=== PATIENT | female | born 1930 | race Caucasian/White ===

== ENCOUNTER 2016-12-14 13:29 | Emergency (ER) | payer BC ==
[2016-12-14 13:44] VITALS: BP 131/75; PULSE 83; BMI 23.7
--- NOTE | 2016-12-14 14:50 | PDOC ---
History of Present Illness - General Chief Complaint: Pain Stated Complaint: CONGESTED Time Seen by Provider: 12/14/16 13:47 Past History - Past Medical History Allergies/Adverse Reactions: Allergies Allergy/AdvReac Type Severity Reaction Status Date / Time clarithromycin [From Biaxin] Allergy Severe ABD. PAIN Verified 04/03/14 08:44 Sulfa (Sulfonamide Allergy Severe RASH,FEVER, Verified 04/03/14 08:44 Antibiotics) NAUSEA erythromycin base AdvReac Intermediate Nausea Verified 04/03/14 08:44 [Erythromycin Base] Home Medications: Ambulatory Orders Atorvastatin Ca [Lipitor] 20 mg PO DAILY 03/08/14 Folic Acid 1 mg PO DAILY 03/08/14 Levothyroxine [Synthroid -] 0.125 mcg PO DAILY 03/08/14 Losartan 50Mg/Hctz 12.5MG [Hyzaar -] 1 tab PO DAILY 03/08/14 Multivitamins [Multivit ([facility] Formulary)] 1 tab PO DAILY 03/08/14 Nebivolol HCl [Bystolic] 5 mg PO BID 03/08/14 Ranitidine [Zantac -] 150 mg PO BID 03/08/14 Verapamil HCl [Verapamil ER] 240 mg PO DAILY 03/08/14 Calcium Carb/Vitamin D3/Vit K1 [Calcium + D Soft Chewable Tab] 1 each PO DAILY 12/24/14 Furosemide [Lasix -] 10 mg PO DAILY 12/24/14 Aspirin [Aspirin EC] 81 mg PO DAILY #0 12/25/14 Anemia: No Asthma: No Cancer: Yes (breast ca with B masectomy) Cardiac Disorders: Yes (hospitalised may 2015 with a-fib, s/p pacemaker august 2015) CVA: No COPD: No CHF: No Dementia: No Diabetes: No GI Disorders: Yes (GERD) Disorders: No HTN: Yes Hypercholesterolemia: Yes Liver Disease: Yes (HEPATITIS 1963) Seizures: No Thyroid Disease: Yes (HYPOTHYROIDISM) - Surgical History Abdominal Surgery: Yes Appendectomy: Yes Cardiac Surgery: Yes (PPM) Cholecystectomy: Yes Lung Surgery: No Neurologic Surgery: (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) Orthopedic Surgery: No - Psycho/Social/Smoking Cessation Hx Anxiety: No Suicidal Ideation: No Smoking History: Former smoker Have you smoked in the past 12 months: No If you are a former smoker, when did you quit?: OVER 30 YRS AGO-ONLY SMOKED FEW PER DAY Information on smoking cessation initiated: No Hx Alcohol Use: No Drug/Substance Use Hx: No Substance Use Type: Alcohol Hx Substance Use Treatment: No *Physical Exam - Vital Signs Last Vital Signs Temp Pulse Resp BP Pulse Ox 83 18 131/75 100 12/14/16 13:37 12/14/16 13:37 12/14/16 13:37 12/14/16 13:37 *DC/Admit/Observation/Transfer Diagnosis at time of Disposition: Eloped - Discharge Dispostion Disposition: LEFT BEFORE MED EVALISAAC Condition at time of disposition: Unchanged/Unknown
== END 2016-12-14 14:00 | disposition left against medical advice (07) ==
LOC: JERFT 13:29
DX: Z53.21 Procedure and treatment not carried out due to patient leaving prior to being seen by health care provider (principal)
CPT/HCPCS: 99281-25

== ENCOUNTER 2017-08-22 12:30 | Emergency (ER) | payer BC, OTHER ==
[2017-08-22 12:39] VITALS: TEMP 97.9; BMI 23.9
--- NOTE | 2017-08-22 13:55 | PDOC ---
History of Present Illness - General History Source: Patient Exam Limitations: No Limitations - History of Present Illness Initial Comments: 08/22/17 15:07 The patient is a 87 year old female with a significant PMH of breast cancer s/p bilateral masectomy, a-fib s/p pacemeaker in august 2015 (on eliquis), GERD, diverticulitis, HTN, HLD, hepatitis B, and hypothyroidism who presents to the emergency department complaining of diarrhea for the past week and generalized weakness this morning. The patient noticed she started having 4-5 episodes of watery stool a day for the past week. The patient notes the stool was black, tarry, non-bloody this morning prompting her to come to the ER. The patient endorses she takes feosol daily and her stool is normally dark, but states her stool was darker than usual this morning. The patient states she is not eating and drinking as much as she usually does. The patient is complaining of generalized weakness since this morning. Of note, the patient had an upper endoscopy in April that was normal. The patient is currently following up with GI, Dr. Turner. The patient denies any recent travel or sick contacts. The patient denies abdominal pain, chest pain, pain with defection, shortness of breath, headache and dizziness. Denies fever, chills, nausea, vomit, diarrhea and constipation. Denies dysuria, frequency, urgency and hematuria. Allergies: Clarithromycin, sulfas, erythromycin Past surgical history: hysterectomy, cholecystectomy, bilateral mastectomy Social history: No reported alcohol, drug, or cigarette use. PCP: Dr. Starr <Lala Spangler - Last Filed: 08/22/17 15:07> <Antonette Thornton - Last Filed: 08/22/17 15:31> - General Chief Complaint: Diarrhea Stated Complaint: DIARRHEA, PCP SENT Time Seen by Provider: 08/22/17 13:37 Past History <Lala Spangler - Last Filed: 08/22/17 15:07> - Past Medical History Anemia: No Asthma: No Cancer: Yes (breast ca with B masectomy) Cardiac Disorders: Yes (hospitalised may 2015 with a-fib, s/p pacemaker august 2015, A.FIB) CVA: No COPD: No CHF: No DVT: No Dementia: No Diabetes: No GI Disorders: Yes (GERD,DIVERTICULITIS) Disorders: No HTN: Yes Hypercholesterolemia: Yes Liver Disease: Yes (HEPATITIS 1963) Seizures: No Thyroid Disease: Yes (HYPOTHYROIDISM) - Surgical History Abdominal Surgery: Yes Appendectomy: Yes Cardiac Surgery: Yes (PPM) Cholecystectomy: Yes Lung Surgery: No Neurologic Surgery: (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 PAIN Verified 08/22/17 12:39 Sulfa (Sulfonamide Allergy Severe RASH,FEVER, Verified 08/22/17 12:39 Antibiotics) NAUSEA erythromycin base AdvReac Intermediate Nausea Verified 08/22/17 12:39 [Erythromycin Base] Home Medications: Ambulatory Orders Atorvastatin Ca [Lipitor] 20 mg PO DAILY 03/08/14 Levothyroxine [Synthroid -] 25 mcg PO DAILY 03/08/14 Multivitamins [Multivit ([facility] Formulary)] 1 tab PO DAILY 03/08/14 Calcium Carb/Vitamin D3/Vit K1 [Calcium + D Soft Chewable Tab] 1 each PO DAILY 12/24/14 Furosemide [Lasix -] 20 mg PO DAILY 12/24/14 Carvedilol [Coreg] 25 mg PO BID 05/17/17 Potassium Chloride [K-Dur -] 10 meq PO DAILY #30 tablet.er 05/18/17 Ranitidine [Zantac -] 150 mg PO BID #60 tablet 05/18/17 Apixaban [Eliquis] 5 mg PO BID 08/22/17 Review of Systems - Review of Systems Able to Perform ROS?: Yes Comments:: 08/22/17 14:18 GENERAL/CONSTITUTIONAL: (+) Weakness. No fever or chills. HEAD, EYES, EARS, NOSE AND THROAT: No change in vision. No ear pain or discharge. No sore throat. CARDIOVASCULAR: No chest pain or shortness of breath. RESPIRATORY: No cough, wheezing, or hemoptysis. GASTROINTESTINAL: (+) Diarrhea and black, tarry stool. No nausea, vomiting, or constipation. GENITOURINARY: No dysuria, frequency, or change in urination. MUSCULOSKELETAL: No joint or muscle swelling or pain. No neck or back pain. SKIN: No rash NEUROLOGIC: No headache, vertigo, loss of consciousness, or change in strength/ sensation. ENDOCRINE: No increased thirst. No abnormal weight change. HEMATOLOGIC/LYMPHATIC: No anemia, easy bleeding, or history of blood clots. ALLERGIC/IMMUNOLOGIC: No hives or skin allergy. <Lala Spangler - Last Filed: 08/22/17 15:07> *Physical Exam - Vital Signs Last Vital Signs Temp Pulse Resp BP Pulse Ox 97.9 F 82 12 109/58 100 08/22/17 12:35 08/22/17 12:35 08/22/17 12:35 08/22/17 12:35 08/22/17 12:35 - Physical Exam Comments: 08/22/17 14:17 GENERAL: Awake, alert, and fully oriented, in no acute distress HEAD: No signs of trauma EYES: PERRLA, EOMI, sclera anicteric, conjunctiva clear ENT: Auricles normal inspection, hearing grossly normal, nares patent, oropharynx clear without exudates. Moist mucosa NECK: Normal ROM, supple, no lymphadenopathy, JVD, or masses LUNGS: Breath sounds equal, clear to auscultation bilaterally. No wheezes, and no crackles HEART: Regular rate and rhythm, normal S1 and S2, no murmurs, rubs or gallops ABDOMEN: Soft, nontender, normoactive bowel sounds. No guarding, no rebound. No masses : (+) Jet black stool. EXTREMITIES: Normal range of motion, no edema. No clubbing or cyanosis. No cords, erythema, or tenderness NEUROLOGICAL: Cranial nerves II through XII grossly intact. Normal speech, normal gait SKIN: Warm, Dry, normal turgor, no rashes or lesions noted. <Lala Spangler - Last Filed: 08/22/17 15:07> - Vital Signs Last Vital Signs Temp Pulse Resp BP Pulse Ox 97.9 F 82 12 109/58 100 08/22/17 12:35 08/22/17 12:35 08/22/17 12:35 08/22/17 12:35 08/22/17 12:35 <Antonette Thornton - Last Filed: 08/22/17 15:31> ED Treatment Course - LABORATORY CBC & Chemistry Diagram: 08/22/17 13:50 08/22/17 13:50 - ADDITIONAL ORDERS Additional order review: 08/22/17 13:50 RBC 4.16 MCV 89.6 MCHC 32.6 RDW 13.1 MPV 8.6 Neutrophils % 67.4 Lymphocytes % 20.5 D Monocytes % 10.8 H Eosinophils % 0.8 Basophils % 0.5 <Lala Spangler - Last Filed: 08/22/17 15:07> - LABORATORY CBC & Chemistry Diagram: 08/22/17 13:50 08/22/17 13:50 <Antonette Thornton - Last Filed: 08/22/17 15:31> Medical Decision Making - Medical Decision Making 08/22/17 15:16 Pt presents to the ED complaining of a week of loose stools, with 3-4 loose stools/ day. Patient also complaining of black stool. On rectal exam, stool is jet black--inconsistent with melena. Stool is guiac negative. PAtient denies other symptoms except for generalized weakness. Labs are within normal limits. Case discussed with Dr. Starr, who agrees with discharging the patient home and will see her on Tuesday. THe patient understands that while she does not appear to have rectal bleeding, I do not yet have a cause for her symptoms and she should return immediately to the ED for new or worsening symptoms. <Antonette Thornton - Last Filed: 08/22/17 15:31> *DC/Admit/Observation/Transfer - Attestations Scribe Attestion: 08/22/17 14:19 Documentation prepared by Lala Spangler, acting as medical secretary receptionist for Antonette Thornton MD. <Lala Spangler - Last Filed: 08/22/17 15:07> - Discharge Dispostion Admit: No <Antonette Thornton - Last Filed: 08/22/17 15:31> Diagnosis at time of Disposition: Diarrhea Qualifiers: Diarrhea type: unspecified type Qualified Code(s): R19.7 - Diarrhea, unspecified - Discharge Dispostion Disposition: HOME Condition at time of disposition: Good - Referrals Referrals: Christin Becker MD [Nurse Practitioner] - - Patient Instructions Printed Discharge Instructions: Diarrhea Additional Instructions: Please return to the ED for worsening diarrhea, abdominal pain, nausea and vomiting, bloody vomit or stool. Make sure that you see Dr. Starr on Tuesday. You should collect your stool in the cup provided and bring it into the lab. - Post Discharge Activity
[2017-08-22 13:59] LABS: BASO % 0.5 % (0-2.0); EOS % 0.8 % (0-4.5); HEMATOCRIT 37.3 % (32.4-45.2); HEMOGLOBIN 12.2 GM/dL (10.7-15.3); LYMPH % 20.5 % (8-40); MCH 29.2 pg (25.7-33.7); MCHC 32.6 g/dl (32.0-36.0); MEAN CELL VOLUME 89.6 fl (80-96); MEAN PLT VOLUME 8.6 fl (7.5-11.1); MONO % 10.8 % (3.8-10.2); NEUT % 67.4 % (42.8-82.8); PLATELET COUNT 208 K/MM3 (134-434); RBC 4.16 M/mm3 (3.60-5.2); RDW 13.1 % (11.6-15.6); WHITE BLOOD COUNT 7.1 K/mm3 (4.0-10.0)
[2017-08-22 14:16] LABS: INR 1.5 (0.82-1.09)
[2017-08-22 14:24] LABS: ALBUMIN 3.8 g/dl (3.4-5.0); ANION GAP 12 (8-16); BILIRUBIN,TOTAL 0.8 mg/dL (0.2-1.0); BLOOD UREA NITROGEN 19 mg/dL (7-18); CALCIUM 9.2 mg/dL (8.5-10.1); CHLORIDE 101 mmol/L (98-107); CO2 23 mmol/L (21-32); CREATININE 1.5 mg/dL (0.55-1.02); GLUCOSE,RANDOM 103 mg/dL (74-106); POTASSIUM 4.7 mmol/L (3.5-5.1); SGOT/AST 33 U/L (15-37); SGPT/ALT 40 U/L (12-78); SODIUM 136 mmol/L (136-145)
[2017-08-22 14:25] LABS: ALK PHOS 104 U/L (45-117); TOT PROT 6.9 g/dl (6.4-8.2)
[2017-08-22] MEDS ORDERED: PRESCRIPTION PAD 1 EACH EACH NR ONE (15:25)
[2017-08-22 15:32] VITALS: BP 126/62; PULSE 76
--- NOTE | 2017-08-23 11:31 | EKG ---
Test Reason : Blood Pressure : / mmHG Vent. Rate : 065 BPM Atrial Rate : 065 BPM P-R Int : 120 ms QRS Dur : 074 ms QT Int : 422 ms P-R-T Axes : 064 029 044 degrees QTc Int : 438 ms POOR DATA QUALITY, INTERPRETATION MAY BE ADVERSELY AFFECTED NORMAL SINUS RHYTHM NORMAL ECG WHEN COMPARED WITH ECG OF 06-MAR-1998 15:51, NO SIGNIFICANT CHANGE WAS FOUND Confirmed by MD Vinay, Aldair ([id number]) on 08/23/2017 11:31:23 AM Referred By: Confirmed By:Aldair Mclean MD
== END 2017-08-22 15:37 | disposition home or self-care (01) ==
LOC: JER 12:30
DX: R19.7 Diarrhea, unspecified (principal); I48.91 Unspecified atrial fibrillation; Z79.01 Long term (current) use of anticoagulants; Z95.0 Presence of cardiac pacemaker; I10 Essential (primary) hypertension; E03.9 Hypothyroidism, unspecified; E78.00 Pure hypercholesterolemia, unspecified; Z85.3 Personal history of malignant neoplasm of breast; Z90.13 Acquired absence of bilateral breasts and nipples; Z86.19 Personal history of other infectious and parasitic diseases
CPT/HCPCS: 36415; 80053; 82272; 85025; 85610; 93005; 93010; 99282-25

== ENCOUNTER 2018-01-29 12:13 | Emergency (ER) | payer BC, OTHER ==
[2018-01-29 12:26] VITALS: TEMP 98.2; BMI 20.2
--- NOTE | 2018-01-29 13:40 | PDOC ---
Attending Attestation - Resident Resident Name: Yesica Lombardo - ED Attending Attestation I have performed the following: I have examined & evaluated the patient, The case was reviewed & discussed with the resident, I agree w/resident's findings & plan, Exceptions are as noted - HPI HPI: 01/29/18 13:39 87y F hx of htn, afib sp pm, on eliquis presents with concern of her medications - states she has been varying her eliquis between 8am and 10am due to a desire to wanting to change her med schedule, and notes that she has had a few red lesions on her torso and a few more prominent veins on her legs pt denies any bleding from gums, vagina, hematuria, diarrha/bpr/melena pt lauren any cp, palpitations,m lightheadedness, sob on exam pt well appearing in no distress card: slightly tachy pulm: cta abd: soft nontender skin a couple of hemangioma on the torso/back, vericose veins on her LE will recheck her INR, hbg HR was reasssessed and is normal no recent changes in her eliquis level - Medical Decision Making 01/29/18 14:54 labs reviewed no anemia platelets wnl will dc with pmd fu return precautions were discussed Heart Score/ECG Review - ECG Impressions Comment:: 01/29/18 14:55 Twelve-lead EKG was performed and reviewed by me. There is normal sinus rhythm with a rate of [address] changes suggestive of acute ischemia
[2018-01-29] MEDS ORDERED: SODIUM CHLORIDE 500 ML IV STA (13:45)
[2018-01-29 13:54] VITALS: BP 142/69; PULSE 93
[2018-01-29 13:59] LABS: BASO % 0.8 % (0-2.0); EOS % 0.3 % (0-4.5); HEMOGLOBIN 12.1 GM/dL (10.7-15.3); LYMPH % 10.2 % (8-40); MCH 31.5 pg (25.7-33.7); MCHC 33.6 g/dl (32.0-36.0); MEAN CELL VOLUME 93.8 fl (80-96); MEAN PLT VOLUME 8.2 fl (7.5-11.1); MONO % 7.7 % (3.8-10.2); PLATELET COUNT 227 K/MM3 (134-434); RBC 3.84 M/mm3 (3.60-5.2); RDW 12.8 % (11.6-15.6); WHITE BLOOD COUNT 8.1 K/mm3 (4.0-10.0)
[2018-01-29 14:09] LABS: INR 1.03 (0.83-1.09); PROTHROMBIN TIME (PATIENT) 11.6 SEC (9.7-13.0)
[2018-01-29 14:26] LABS: ALBUMIN 3.6 g/dl (3.4-5.0); ALK PHOS 91 U/L (45-117); ANION GAP 7 (8-16); BILIRUBIN,TOTAL 0.5 mg/dL (0.2-1.0); BLOOD UREA NITROGEN 25 mg/dL (7-18); CHLORIDE 108 mmol/L (98-107); CO2 27 mmol/L (21-32); GLUCOSE,RANDOM 96 mg/dL (74-106); POTASSIUM 4.7 mmol/L (3.5-5.1); SGOT/AST 24 U/L (15-37); SGPT/ALT 26 U/L (12-78); SODIUM 142 mmol/L (136-145); TOT PROT 6.6 g/dl (6.4-8.2)
--- NOTE | 2018-01-29 14:42 | PDOC ---
History of Present Illness - General Chief Complaint: Rash Stated Complaint: RASH Time Seen by Provider: 01/29/18 13:16 - History of Present Illness Initial Comments: 01/29/18 13:35 87 year old w/ history of HTN and a.fib on Eliquis 2.5mg who presents with some red lesions on the chest, abdomen and back for the past 4 days after accidentally switching the timing of her eliquis from 10am to 8am. She denies chest palpitations, feeling lightheaded, headaches, bleeding from the gums, blood in urine or stool, shortness of breath and abdominal pain. She has no other complaints at bedside. PMHX: as in HPI Meds: as in HPI Allergies: clarithromycin, sulfa Tob; none Etoh; none Rec drugs: none Cardiology: PCP: Bruno Past History - Past Medical History Allergies/Adverse Reactions: Allergies Allergy/AdvReac Type Severity Reaction Status Date / Time clarithromycin [From Biaxin] Allergy Severe ABD. PAIN Verified 01/29/18 12:20 Sulfa (Sulfonamide Allergy Severe RASH,FEVER, Verified 01/29/18 12:20 Antibiotics) NAUSEA erythromycin base AdvReac Intermediate Nausea Verified 01/29/18 12:20 [Erythromycin Base] Home Medications: Ambulatory Orders Ascorbic Acid [Vitamin C] 300 mg PO BID 12/22/17 Atorvastatin Ca [Lipitor] 20 mg PO HS 12/22/17 Biotin 10,000 mcg PO DAILY 12/22/17 Furosemide [Lasix] 20 tab DAILY 12/22/17 Iron,Carbonyl [Feosol] 45 mg PO DAILY 12/22/17 Levothyroxine [Synthroid -] 12.5 mcg PO DAILY 12/22/17 Lutein 20 mg PO DAILY 12/22/17 Ranitidine [Zantac -] 150 mg PO BID 12/22/17 Apixaban [Eliquis -] 2.5 mg PO BID #60 tablet 12/26/17 Diltiazem Cd [Cardizem Cd -] 120 mg PO DAILY #30 cap.cd.24h 12/26/17 Lactobacillus Acidophilus [Bacid -] 1 tab PO DAILY #14 tab 12/26/17 Calcium Carbonate/Vitamin D3 [Calcium 600 + Vit D Tablet] 1 each PO DAILY Neomycin/Polymyxin B/Dexametha [Bwbacn-Ielmh-Zoavgky Eye Ointm] 0.25 mg OP DAILY 01/29/18 Potassium Chloride 10 meq PO DAILY 01/29/18 Anemia: No Asthma: No Cancer: Yes (breast ca with B masectomy) Cardiac Disorders: Yes (hospitalised may 2015 with a-fib, s/p pacemaker august 2015, A.FIB) CVA: No COPD: No CHF: No DVT: No Dementia: No Diabetes: No GI Disorders: Yes (GERD,DIVERTICULITIS) Disorders: No HTN: Yes Hypercholesterolemia: Yes Liver Disease: Yes (HEPATITIS 1963) Seizures: No Thyroid Disease: Yes (HYPOTHYROIDISM) - Surgical History Abdominal Surgery: Yes Appendectomy: Yes Cardiac Surgery: Yes (PPM) Cholecystectomy: Yes Lung Surgery: No Neurologic Surgery: (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) Orthopedic Surgery: No - Suicide/Smoking/Psychosocial Hx Smoking History: Never smoked Have you smoked in the past 12 months: No If you are a former smoker, when did you quit?: OVER 30 YRS AGO-ONLY SMOKED FEW PER DAY Information on smoking cessation initiated: No Hx Alcohol Use: Yes (socially) Drug/Substance Use Hx: No Substance Use Type: None Hx Substance Use Treatment: No Review of Systems - Review of Systems Able to Perform ROS?: Yes Is the patient limited Slovenian proficient: No Constitutional: No: Chills, Diaphoresis, Fever HEENTM: No: Blurred Vision, Tinnitus Respiratory: No: Cough, Orthopnea, Shortness of Breath Cardiac (ROS): No: Chest Pain, Palpitations, Chest Tightness ABD/GI: No: Constipated, Diarrhea, Nausea, Vomiting : No: Burning, Hematuria, Incontinence Musculoskeletal: No: Back Pain Neurological: No: Headache, Numbness, Tingling *Physical Exam - Vital Signs Last Vital Signs Temp Pulse Resp BP Pulse Ox 98.2 F 120 H 20 171/73 99 01/29/18 12:16 01/29/18 12:16 01/29/18 12:16 01/29/18 12:16 01/29/18 12:16 - Physical Exam Comments: 01/30/18 18:36 GENERAL: Awake, alert, and fully oriented, in no acute distress HEAD: No signs of trauma, normocephalic, atraumatic EYES: PERRLA, EOMI, sclera anicteric, conjunctiva clear ENT: Auricles normal inspection, hearing grossly normal, nares patent, oropharynx clear without exudates. Moist mucosa NECK: Normal ROM, supple, no lymphadenopathy, JVD, or masses LUNGS: No distress, speaks full sentences, clear to auscultation bilaterally HEART: Regular rate and rhythm, normal S1 and S2, no murmurs, rubs or gallops, peripheral pulses normal and equal bilaterally. ABDOMEN: Soft, nontender, normoactive bowel sounds. No guarding, no rebound. No masses EXTREMITIES : Normal inspection, Normal range of motion, no edema. No clubbing or cyanosis. NEUROLOGICAL: Cranial nerves II through XII grossly intact. Normal speech, normal gait, no focal sensorimotor deficits SKIN: Warm, Dry, normal turgor, no rashes or lesions noted ED Treatment Course - LABORATORY CBC & Chemistry Diagram: 01/29/18 13:37 01/29/18 13:37 Medical Decision Making - Medical Decision Making 01/30/18 18:36 87 year old w/ history of HTN and a.fib on Eliquis 2.5mg who presents with some red lesions on the chest, abdomen and back for the past 4 days after accidentally switching the timing of her eliquis from 10am to 8am. Patient's symptoms and history are concerning for *DC/Admit/Observation/Transfer Diagnosis at time of Disposition: Hemangioma - Discharge Dispostion Disposition: HOME Condition at time of disposition: Stable Decision to Admit order: No - Referrals Referrals: Trip Starr MD [Primary Care Provider] - - Patient Instructions Printed Discharge Instructions: Hemangioma Additional Instructions: You were seen in the ED for new skin changes. In the ED you were evaluated with labwork. Your results were unremarkable. There does not appear to be a reason for immediate hospitalization. You are advised to follow up with your PCP and Television Program Director within 1 week. Return to the ED if you feel weakness, headache, fever, nausea, chest pain or shortness of breath. - Post Discharge Activity
--- NOTE | 2018-01-31 16:28 | EKG ---
Test Reason : Blood Pressure : / mmHG Vent. Rate : 113 BPM Atrial Rate : 113 BPM P-R Int : 120 ms QRS Dur : 068 ms QT Int : 324 ms P-R-T Axes : 081 056 052 degrees QTc Int : 444 ms SINUS TACHYCARDIA POSSIBLE LEFT ATRIAL ENLARGEMENT BORDERLINE ECG WHEN COMPARED WITH ECG OF 22-DEC-2017 05:23, SINUS RHYTHM HAS REPLACED ATRIAL FIBRILLATION NONSPECIFIC T WAVE ABNORMALITY NO LONGER EVIDENT IN INFERIOR LEADS Confirmed by Kai Conklin MD ([id number]) on 01/31/2018 4:27:55 PM Referred By: Confirmed By:Kai Conklin MD
== END 2018-01-29 15:13 | disposition home or self-care (01) ==
LOC: JER 12:13
DX: D18.00 Hemangioma unspecified site (principal); I10 Essential (primary) hypertension; I48.91 Unspecified atrial fibrillation; Z79.01 Long term (current) use of anticoagulants; E03.9 Hypothyroidism, unspecified; Z85.3 Personal history of malignant neoplasm of breast
CPT/HCPCS: 36415; 80053; 85025; 85610; 85730; 93005; 93010; 99282-25